=== PATIENT | female | born 1950 | race Caucasian/White ===

== ENCOUNTER 2022-12-20 07:53 | Outpatient (CLI) | payer MEDICARE, SELFPAY ==
[2022-12-20 09:54] LABS: Chloride* 98 mmol/L (96-114); Potassium* 3.9 mmol/L (3.6-5.1); Sodium* 135 mmol/L (135-149)
[2022-12-20 09:57] LABS: Blood Urea Nitrogen* 12 mg/dL (7-30); Carbon Dioxide* 30 mmol/L (20-32); Cholesterol* 204 mg/dL (90-199); Creatinine* 0.7 mg/dL (0.5-1.5); Estimated Glomerular Filt Rate 92 ml/min; Glucose* 106 mg/dL (60-115); Triglycerides* 124 mg/dL (40-149)
[2022-12-20 09:58] LABS: Calcium* 9.2 mg/dL (8.4-10.6); HDL Cholesterol* 74 mg/dL (>=50); LDL Cholesterol Calculated 105 mg/dL (<100)
[2022-12-20 10:05] LABS: Vitamin D 25 Hydroxy* 63 ng/mL (30-80)
== END 2022-12-20 07:54 | disposition home or self-care (01) ==
PROVIDERS: PCP Family Medicine; Visit Provider Family Medicine
DX: M81.0 Age-related osteoporosis without current pathological fracture (principal); Z00.00 Encounter for general adult medical examination without abnormal findings; I10 Essential (primary) hypertension; Z13.6 Encounter for screening for cardiovascular disorders
CPT/HCPCS: 80048; 80061; 82306

== ENCOUNTER 2023-12-17 08:20 | Outpatient (CLI) | payer MEDICARE, SELFPAY ==
--- OUTSIDE RECORDS SUMMARY | 2023-12-18 12:42 | XMS_ITS | Clinical Summary ---
Author Name Unknown Organization [facility] Address [place], [place] [address] Care Team Providers Care Building Rigger Name Role Phone Bernard Lyn MD Primary Care Provider [phone] Allergies Active Allergy Reactions Criticality Noted Date Comments Levofloxacin Rash High 04/08/2017 Penicillins Other - Describe In Comment Field 0 03/26/2008 fainted Medications Medication Sig Dispensed Refills Start Date End Date Status lisinopril (PRINIVIL; ZESTRIL) 20 mg tablet Take 1 tablet by mouth once daily. 0 02/01/2010 Active triamterene-hydroch lorothiazide, 37.5-25 mg, (DYAZIDE) 37.5-25 mg capsule Take 1 capsule by mouth every morning. To lower blood pressure and remove fluid. 90 capsule 3 02/01/2010 Active fluticasone-salmete rol (ADVAIR DISKUS) 250-50 mcg/Dose diskus inhaler Inhale 1 Puff by mouth every 12 hours. 1 Inhaler 0 02/01/2010 Active albuterol HFA (PRO-AIR,VENTOLIN,P ROVENTIL) 90 mcg/Actuation inhaler Inhale 2 Puffs by mouth every 4 hours if needed for Shortness Of Breath, Wheezing and Other (Specify). cough *Use with an flying ii instructor tube. 1 Inhaler 2 02/01/2010 Active Active Problems Problem Noted Date Diagnosed Date Routine adult health maintenance 10/23/2013 Overview: Colonoscopy 10/2013 normal repeat in 10 years Unspecified asthma(493.90) 02/01/2010 HTN (hypertension) 02/01/2010 Osteoporosis, unspecified 02/01/2010 Family History Medical History Relation Name Comments Other Father d69, empnysema, smker Other Mother d69, heart Relation Name Status Comments Brother Alive Father Mother Social History Tobacco Use Types Packs/Day Years Used Date Smoking Tobacco: Never Smokeless Tobacco: Never Tobacco Cessation:Counseling Given: Yes Alcohol Use Standard Drinks/Week Comments Yes 0 (1 standard drink = 0.6 oz pur e alcohol) 5 glasses of wine per week Sex and Gender Information Value Date Recorded Sex Assigned at Not on file Gender Identity Not on file Sexual Orientation Not on file Obstetrics History Last Filed Vital Signs Vital Sign Reading Time Taken Comments Blood Pressure 140/83 04/08/2017 8:35 AM CDT Pulse 93 04/08/2017 8:35 AM CDT Temperature 36.7 ??C (98 ??F) 04/08/2017 8:35 AM CDT Respiratory Rate - - Oxygen Saturation 98% 04/08/2017 8:35 AM CDT Inhaled Oxygen Concentration - - Weight 64.6 kg (142 lb 8 oz) 02/01/2010 1:58 PM CDT Height 152.4 cm (5') 02/01/2010 2:33 PM CDT Body Mass Index 27.83 02/01/2010 1:58 PM CDT Plan of Treatment Health Maintenance Due Date Last Done Comments COVID-19 vaccine series (#1) 1951 Tdap 1962 Depression screening for age 12+ 1963 BMI (ht and wt on same day) for age 18+ 1969 Hepatitis C screening for age 18-79 1969 Tetanus booster 1971 Lipids for age 45-75 1996 Mammogram for age 45-75 1996 Zoster (shingles) series for age 50+ (1 of 2) 2001 DEXA/DXA scan for age 65+ 2016 Medicare Wellness for age 65+ 2016 Pneumococcal series for age 65+ (1 of 1 - PCV) 2016 Influenza for age 65+ 07/19/2023 Colonoscopy through age 75 10/23/202310/23, 10/23/2013, 03/26/2008 Care Teams Building Rigger Relationship Specialty Start Date End Date Bernard Lyn MD [address] [place] [address] PCP - General Family Practice 02/06/21
--- OUTSIDE RECORDS SUMMARY | 2023-12-18 12:42 | XMS_ITS | Referral Summary ---
Author Name Unknown Organization [facility] Address [address] [place] [address] Care Team Providers Care General Activities Therapist Name Role Phone Cami Atkins Primary Care Provider [phone] Viviana Hernandez MD Unavailable [phone] Social History Tobacco Use Types Packs/Day Years Used Date Smoking Tobacco: Never Assessed Adolescent Education Answer Date Record ed Getting School Help Needed Not on file 09/01 Sex and Gender Information Value Date Recorded Sex Assigned at Not on file Gender Identity Not on file Sexual Orientation Not on file Plan of Treatment Not on file Care Teams General Activities Therapist Relationship Specialty Start Date End Date Cami Atkins ADONIS HANSEN [address] [place], [place] [id number] PCP - General Family Practice 08/20/13 Viviana Hernandez MD [address] [place] [address] 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
--- OUTSIDE RECORDS SUMMARY | 2023-12-18 12:42 | XMS_ITS | Clinical Summary ---
Author Name Unknown Organization [facility] Address [address] [place] [address] Care Team Providers Care Public Safety Dispatcher Name Role Phone Cami Atkins Primary Care Provider [phone] Viviana Hernandez MD Unavailable [phone] Family History Medical History Relation Comments Breast Cancer Maternal Aunt Ovarian Cancer No family hx of Relation Status Comments Maternal Aunt Social History Tobacco Use Types Packs/Day Years Used Date Smoking Tobacco: Never Assessed Adolescent Education Answer Date Record ed Getting School Help Needed Not on file 09/01 Sex and Gender Information Value Date Recorded Sex Assigned at Not on file Gender Identity Not on file Sexual Orientation Not on file Plan of Treatment Health Maintenance Due Date Last Done Comments ADVANCE CARE PLANNING 1950 ANNUAL REVIEW OF HM ORDERS 1951 CT COLONOGRAPHY 1951 DEXA 1950 FIT 1950 FLEX SIG 1950 sDNA (Cologuard) 1950 COVID-19 Vaccine (#1) 1951 COLONOSCOPY 1961 COLORECTAL CANCER SCREENING 1961 HEPATITIS C SCREENING 1969 LIPID 1996 ZOSTER IMMUNIZATION (1 of 2) 2001 DTAP/TDAP/TD IMMUNIZATION (1 - Tdap) 12/03/2006 12/02/2006, 06/08/2003 RSV VACCINE ( & 60+) (1 - 1-dose 60+ series) 2011 FALL RISK ASSESSMENT 2016 MEDICARE ANNUAL WELLNESS VISIT 2016 Pneumococcal Vaccine: 65+ Years (1 of 1 - PCV) 2016 INFLUENZA VACCINE (#1) 2023 PHQ-2 (once per calendar year) 2023 MAMMO SCREENING 07/27/2024 07/27/2022, 05/19, 11/29/2016, Additional history exists HPV IMMUNIZATION Aged Out No longer e ligible based on patient's age to complete this topic IPV IMMUNIZATION Aged Out No longer e ligible based on patient's age to complete this topic MENINGITIS IMMUNIZATION Aged Out No l onger eligible based on patient's age to complete this topic RSV MONOCLONAL ANTIBODY Aged Out No l onger eligible based on patient's age to complete this topic Care Teams Public Safety Dispatcher Relationship Specialty Start Date End Date Cami Atkins ADONIS [employer] PA [address] [facility] [address] [place] [address] PCP - General Family Practice 08/20/13 Viviana Hernandez MD [address] [facility] [address] [place] [id number] 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
== END 2023-12-17 08:21 | disposition home or self-care (01) ==
LOC: NFLDREF 12-18 12:41
PROVIDERS: PCP Family Medicine; Referring Provider Family Medicine; Visit Provider Family Medicine
DX: Z13.1 Encounter for screening for diabetes mellitus (principal); Z13.220 Encounter for screening for lipoid disorders; E55.9 Vitamin D deficiency, unspecified
CPT/HCPCS: 80048; 80061; 82306

== ENCOUNTER 2025-03-03 08:44 | Outpatient (CLI) | payer MEDICARE, SELFPAY | END 2025-03-03 08:45 | disposition home or self-care (01) | LOC: NFLDREF 03-05 18:20 | PROVIDERS: PCP Family Medicine; Referring Provider Family Medicine; Visit Provider Family Medicine | DX: E78.00 Pure hypercholesterolemia, unspecified (principal); I10 Essential (primary) hypertension; M81.0 Age-related osteoporosis without current pathological fracture | CPT/HCPCS: 80053; 80061; 82306 ==